=== PATIENT | male | born 1995 | race Two or more races ===

== ENCOUNTER 2017-06-21 23:40 | Inpatient (IN) | payer OTHER ==
[2017-06-22 00:41] LABS: HEMATOCRIT 45.4 % (42.0-52.0); HEMOGLOBIN 15.7 g/dl (13.5-17.5); MEAN CORPUSCULAR HEMOGLOBIN 29.7 pg (27.0-33.0); MEAN CORPUSCULAR HGB CONC 34.6 g/dl (32.0-36.5); PLATELET COUNT, AUTOMATED 321 10^3/uL (150-450); RED BLOOD COUNT 5.28 10^6/uL (4.30-6.10); RED CELL DISTRIBUTION WIDTH 13.2 % (11.5-14.5); WHITE BLOOD COUNT 9.4 10^3/uL (4.0-10.0)
[2017-06-22 00:59] LABS: ALBUMIN 4.7 GM/DL (3.2-5.2); ALBUMIN/GLOBULIN RATIO 1.31 (1.00-1.93); ALKALINE PHOSPHATASE 82 U/L (45-117); ALT/SGPT 21 U/L (12-78); ANION GAP 8 MEQ/L (8-16); AST/SGOT 13 U/L (7-37); BILIRUBIN,DIRECT 0.3 MG/DL (0.0-0.2); BILIRUBIN,TOTAL 0.9 MG/DL (0.2-1.0); BLOOD UREA NITROGEN 16 MG/DL (7-18); CALCIUM LEVEL 9.5 MG/DL (8.5-10.1); CARBON DIOXIDE LEVEL 26 MEQ/L (21-32); CHLORIDE LEVEL 105 MEQ/L (98-107); CREATININE FOR GFR 1.06 MG/DL (0.70-1.30); ETHYL ALCOHOL (ETHANOL) < 0.003 % (0.000-0.010); GLUCOSE, FASTING 97 MG/DL (70-100); POTASSIUM SERUM 4.1 MEQ/L (3.5-5.1); SALICYLATE LEVEL < 1.7 MG/DL (5.0-30.0); SODIUM LEVEL 139 MEQ/L (136-145); TOTAL PROTEIN 8.3 GM/DL (6.4-8.2)
[2017-06-22 01:06] LABS: AMPHETAMINES LEVEL URINE NEGATIVE (NEGATIVE); BARBITURATES URINE NEGATIVE (NEGATIVE); BENZODIAZEPINES URINE NEGATIVE (NEGATIVE); CANNABINOIDS URINE POSITIVE (NEGATIVE); COCAINE METABOLITE URINE NEGATIVE (NEGATIVE); METHADONE URINE NEGATIVE (NEGATIVE); OPIATES URINE NEGATIVE (NEGATIVE); PHENCYCLIDINE URINE NEGATIVE (NEGATIVE)
[2017-06-22 01:11] LABS: ACETAMINOPHEN LEVEL < 2.0 UG/ML (10.0-30.0)
[2017-06-22] MEDS ORDERED: MOM 30ML SUSPENSION UDC PO (01:45)
[2017-06-22] MEDS ORDERED: MAALOX 30 ML SUSP *UDC PO (01:45)
[2017-06-22] MEDS ORDERED: ACETAMINOPHEN TAB 650MG DOSE (2X325MG) PO (01:45)
[2017-06-22] MEDS ORDERED: traZODone 50 MG TAB PO (01:45)
[2017-06-22] MEDS: OLANZapine INTRAMUSCULAR 10 MG VIAL (S0166) IM ×2 (08:50→18:42)
[2017-06-22] MEDS: LORazepam 2 MG/ML VIAL (J2060) IM ×2 (08:51→18:43)
[2017-06-22] MEDS: diphenhydrAMINE INJ 50MG/ML VIAL (J1200) IM ×2 (08:51→18:43)
[2017-06-22] MEDS: PALIPERIDONE 3 MG ER TAB (INVEGA) PO (21:00)
[2017-06-23] MEDS: PALIPERIDONE 3 MG ER TAB (INVEGA) PO ×2 (15:23→21:24)
[2017-06-24] MEDS: PALIPERIDONE 3 MG ER TAB (INVEGA) PO ×2 (09:15→21:36)
[2017-06-24] MEDS: LORazepam 2 MG TAB PO (19:16)
[2017-06-25] MEDS: PALIPERIDONE 3 MG ER TAB (INVEGA) PO ×2 (09:01→20:03)
[2017-06-25] MEDS: LORazepam 2 MG TAB PO (11:27)
[2017-06-26] MEDS: PALIPERIDONE 3 MG ER TAB (INVEGA) PO ×2 (08:46→20:00)
[2017-06-26] MEDS: LORazepam 2 MG TAB PO (11:34)
[2017-06-26] MEDS: OLANZapine ORAL DISINTEGRATING TAB 5MG PO (20:03)
[2017-06-27] MEDS: PALIPERIDONE 3 MG ER TAB (INVEGA) PO (08:52)
[2017-06-27] MEDS: LORazepam 2 MG TAB PO (09:36)
== END 2017-06-27 12:30 | disposition home or self-care (01) | DRG 750 ==
LOC: M ED 23:40 → M ED INP 06-22 01:34 → M PSY 06-22 02:34
DX: F20.9 Schizophrenia, unspecified (principal); F22 Delusional disorders; F19.94 Other psychoactive substance use, unspecified with psychoactive substance-induced mood disorder; Z88.8 Allergy status to other drugs, medicaments and biological substances; F12.90 Cannabis use, unspecified, uncomplicated